=== PATIENT | female | born 1965 | race Caucasian/White ===

== ENCOUNTER 2019-05-30 11:42 | Outpatient (CLI) | payer OTHER ==
[2019-05-30 12:02] LABS: BASOPHILS % (AUTO) 0.6 %; EOSINOPHILS # (AUTO) 0.3 10^3/uL (0.0-0.7); EOSINOPHILS % (AUTO) 5.9 %; HGB - HEMOGLOBIN 12.5 g/dL (12.0-16.0); LYMPHOCYTES # (AUTO) 1.6 10^3/uL (1.5-3.5); LYMPHOCYTES % (AUTO) 29.9 %; MEAN CORPUSCULAR HEMOGLOBIN 33.3 pg (27.0-31.0); MEAN CORPUSCULAR HGB CONC 32.9 g/dL (32.0-36.0); MEAN CORPUSCULAR VOLUME 101.3 fL (81.0-99.0); MONOCYTES # (AUTO) 0.4 10^3/uL (0.0-1.0); NEUTROPHILS # (AUTO) 2.9 10^3/uL (1.5-6.6); NEUTROPHILS % (AUTO) 55.4 %; PLT - PLATELET COUNT 180 10^3/uL (130-450); RED BLOOD COUNT 3.75 10^6/uL (4.20-5.40); RED CELL DISTRIBUTION WIDTH 13.6 % (12.0-15.0); WHITE BLOOD COUNT 5.2 x10^3/uL (4.8-10.8)
[2019-05-30 12:11] LABS: ALBUMIN 4.2 g/dL (3.2-5.5); ALBUMIN/GLOBULIN RATIO 1.4 (1.0-2.2); BILIRUBIN,TOTAL 0.6 mg/dL (0.2-1.0); CALCIUM 9.4 mg/dL (8.5-10.3); CREATININE 0.6 mg/dL (0.4-1.0); TOTAL PROTEIN 7.2 g/dL (6.7-8.2)
== END 2019-05-30 11:43 | disposition home or self-care (01) ==
LOC: LAB 11:42 → RT 11:43
PROVIDERS: ATTEND Internal Medicine Gastroenterology
DX: E78.5 Hyperlipidemia, unspecified (principal); I10 Essential (primary) hypertension
CPT/HCPCS: 36415; 80053; 85025; 93005

== ENCOUNTER 2019-06-06 14:42 | Outpatient (CLI) | payer OTHER | END 2019-06-06 14:43 | disposition home or self-care (01) | LOC: LAB 14:42 | PROVIDERS: ATTEND Internal Medicine Gastroenterology | DX: K43.2 Incisional hernia without obstruction or gangrene (principal) | CPT/HCPCS: 87640 ==

== ENCOUNTER 2019-06-09 09:41 | Day surgery (SDC) | payer OTHER ==
[2019-06-09] MEDS ORDERED: KETAMINE 500 MG/10 ML VIAL IVP ONE (09:42)
[2019-06-09] MEDS ORDERED: KETOROLAC 30 MG/ML VIAL IVP ONE (09:42)
[2019-06-09] MEDS ORDERED: MIDAZOLAM 2 MG/2 ML VIAL IVP ONE (09:42)
[2019-06-09] MEDS ORDERED: PROPOFOL 200 MG/20 ML VIAL IVP ONE (09:42)
[2019-06-09] MEDS ORDERED: fentaNYL 100 MCG/2 ML VIAL IVP ONE (09:42)
[2019-06-09] MEDS ORDERED: ONDANSETRON 4 MG/2 ML VIAL IVP ONE (09:42)
[2019-06-09] MEDS ORDERED: LACTATED RINGERS 1,000 ML IV ONE (10:03)
[2019-06-09] MEDS ORDERED: CEFAZOLIN SODIUM IN 0.9 % NACL 2 GM/100 ML BAG IV ONE (10:03)
[2019-06-09] MEDS ORDERED: ceFAZolin 1 GM VIAL ONE (10:49)
[2019-06-09] MEDS ORDERED: BUPIVACAINE 0.5% PF 10 ML VIAL ONE (10:50)
[2019-06-09] MEDS ORDERED: BUPIVACAINE 0.5%-EPI 1:200000 PF 30 ML VIAL ONE (10:50)
--- NOTE | 2019-06-09 11:19 | ANESTHESIA ---
Pre-Anesthesia VS, & Labs - Diagnosis Umbilical hernia - Procedure umbilical hernia repair with mesh Vital Signs: Temp Pulse Resp BP Pulse Ox 36.4 C L 66 12 134/82 H 98 06/09/19 10:19 06/09/19 10:19 06/09/19 10:19 06/09/19 10:19 06/09/19 10:19 Height 5 ft 9 in Weight (kg) 91 kg - Is Patient ?: No Home Medications and Allergies Home Medications: Ambulatory Orders Omeprazole Magnesium [Prilosec] 20 mg PO DAILY 06/05/19 Telmisartan [Micardis] 40 mg PO DAILY 06/05/19 Omeprazole Magnesium [Prilosec] 20 mg PO DAILY 06/05/19 Telmisartan [Micardis] 40 mg PO DAILY 06/05/19 Allergies/Adverse Reactions: Allergies Allergy/AdvReac Type Severity Reaction Status Date / Time No Known Drug Allergies Allergy Verified 06/06/19 13:12 Anes History & Medical History - Anesthetic History Anesthesia Complications: reports: No previous complications - Medical History Cardiovascular: reports: Hypertension, Murmur Pulmonary: reports: None Gastrointestinal: reports: GERD (controlled with medication), Hepatitis (autoimmune hepatitis) Urinary: reports: None Neuro: reports: None Musculoskeletal: reports: None Endocrine/Autoimmune: reports: None Blood Disorders: reports: None Skin: reports: None Smoking Status: Never smoker Psychosocial: reports: No issues indicated - Surgical History Eyes Ears Nose Throat (EENT): Cataracts Gynecologic: section, Hysterectomy Exam General: Alert, Oriented x3, Cooperative, No acute distress Dental: WNL Mouth Openin Fingerbreadth Neck Mobility: Normal Thyromental Distance: greater than 6 cm Respiratory: Lungs clear, Normal breath sounds, No respiratory distress, No accessory muscle use Cardiovascular: Regular rate, Normal S1, Normal S2, No murmurs Mental/Cognitive Status: Alert/Oriented X3, Normal for patient Plan Anesthesia Type: MAC Consent for Procedure(s) Verified and Reviewed: Yes Code Status: Attempt Resuscitation ASA classification: 2-Mild systemic disease Is this case an emergency?: No
[2019-06-09] MEDS ORDERED: VANCOMYCIN 1 GM VIAL ONE (11:30)
[2019-06-09] MEDS ORDERED: LIDOCAINE-MPF 1% 30 ML VIAL ONE (11:58)
[2019-06-09] MEDS ORDERED: ACETAMINOPHEN 325 MG TABLET PO PRN (12:28)
[2019-06-09] MEDS ORDERED: IBUPROFEN 600 MG TABLET PO PRN (12:28)
[2019-06-09] MEDS ORDERED: ONDANSETRON 4 MG/2 ML VIAL IVP PRN (12:28)
[2019-06-09] MEDS ORDERED: oxyCODONE 5 MG TABLET PO PRN (12:28)
[2019-06-09 13:04] VITALS: BP 128/76
--- NOTE | 2019-06-09 13:10 | OPERATIVE REPORT ---
DATE OF SERVICE: 06/09/2019 Physician: Teo Shelby MD PREOPERATIVE DIAGNOSIS: Symptomatic ventral incisional hernia. POSTOPERATIVE DIAGNOSIS: Symptomatic ventral incisional hernia. PROCEDURE PERFORMED: Open repair of symptomatic ventral incisional hernia with Ventralex soft tissue patch. ANESTHESIA: Local plus monitored anesthesia care by Carolyn Gomez CRNA. SURGEON: Teo Shelby MD ESTIMATED BLOOD LOSS: 5 mL COMPLICATIONS: None. FINDINGS: A 2 cm fascial defect was present in the midline at the umbilicus with preperitoneal fat p resent within the hernia sac. A small Ventralex ST patch was used for the reconstruction. INDICATIONS: Patient is a 53-year-old woman with a history of a progressively enlarging tender, pain ful, reducible umbilical bulge. She is status post several prior laparoscopies. Examination reveale d a partially reducible hernia consistent with a ventral incisional hernia. She was advised to under go elective repair. TECHNIQUE: After informed consent, patient was taken to the operating room and placed in supine posi tion and sedated and monitored. Preoperative preparation included application of sequential calf com pression boots and administration of 2 grams cefazolin and 1 gram of vancomycin intravenously due to a past history of MRSA infection. Her abdomen was prepared with iodoform solution, following which, a periumbilical block was instituted using a 50:50 combination of 1% lidocaine plain and 0.5% Marcain e with epinephrine. Approximately 20 mL of this mixture was used, plus additional 10 mL of 0.5% Doron keri with epinephrine. The patient's abdomen was re-prepared with ChloraPrep solution and draped in the usual sterile fashion. Transverse curvilinear incision was made in the supraumbilical region rena roximately 4 cm in length. Hemostasis achieved with electrocautery. Incision carried down through s ubcutaneous tissues. The hernia sac was identified, mobilized circumferentially dissected free off o f the overlying skin and the anterior fascia was mobilized circumferentially around the neck of the h ernia sac. The hernia sac was entered and excised and discarded. Hernia contents were reduced into the peritoneal cavity, the fascial edges were mobilized circumferentially. After hemostasis was assu red, the wound was irrigated with antibiotic solution containing 1 gram of cefazolin per liter, A siz e small Ventralex ST patch, which been soaked in antibiotic solution, was placed into the preperitone al space, where it was seen to expand nicely against the anterior fascia. The strap was then used to hold the mesh against the anterior fascia while the fascial edges were reapproximated transversely w ith interrupted 0 Ethibond sutures. Several sutures were used to incorporate the strap with the fasc ial closure. Excess strap was excised and discarded. After hemostasis had been assured, the wound w as then again irrigated with antibiotic solution, following which wound closure was accomplished in l solo using interrupted 2-0 Vicryl to reapproximate the deep subcutaneous tissues, followed by contin uous 3-0 Vicryl for the superficial subcutaneous tissues, followed by 4-0 Monocryl subcuticular skin closure, followed by Dermabond. The procedure was then terminated, and the patient was transferred o mi of the operating room in satisfactory condition. Sponge and needle counts were correct x2. No dr britt were used. TD: 06/09/2019 12:38
== END 2019-06-09 09:42 | disposition home or self-care (01) ==
LOC: SDS 09:41
PROVIDERS: ATTEND Internal Medicine Gastroenterology
PROC: 0WUF0JZ Supplement Abdominal Wall with Synthetic Substitute, Open Approach (ICD-10-PCS; principal; 2019-06-09 11:00)
DX: K43.2 Incisional hernia without obstruction or gangrene (principal); I10 Essential (primary) hypertension; E78.5 Hyperlipidemia, unspecified; R01.1 Cardiac murmur, unspecified; K21.9 Gastro-esophageal reflux disease without esophagitis; K75.4 Autoimmune hepatitis; Z85.3 Personal history of malignant neoplasm of breast; Z79.52 Long term (current) use of systemic steroids
CPT/HCPCS: 49560; 49568; A9270; C1781; J0690; J3370; J7120; 87640

== ENCOUNTER 2022-12-03 11:23 | Outpatient (CLI) | payer OTHER | END 2022-12-03 23:59 | disposition critical access hospital (66) | LOC: EMS 11:23 | DX: R00.2 Palpitations (principal) | CPT/HCPCS: A0425; A0429 ==

== ENCOUNTER 2022-12-03 11:59 | Emergency (ER) | payer OTHER ==
[2022-12-03] MEDS ORDERED: DEXAMETHASONE 10 MG/ML VIAL IVP STA (12:13)
--- NOTE | 2022-12-03 12:15 | ED Physician Documentation ---
PD HPI CHEST PAIN - Stated complaint Stated Complaint: HEART PALP - Chief complaint Chief Complaint: Cardiac - History obtained from History obtained from: Patient - Additional information Additional information: 57-year-old woman visiting from [place]. Recent diagnosis of rheumatoid arthritis on a steroid taper currently at 15 mg a day. She has a history of palpitations with negative Holter monitoring may be 20 years ago. Today she felt heart fluttering which has since resolved. She feels fatigued. There is no chest pain or trouble breathing. No pedal edema or calf pain. Symptoms are better now. EMS noted PVCs prior to arrival. PD PAST MEDICAL HISTORY - Past Medical History Cardiovascular: Hypertension, Murmur Respiratory: None Neuro: None Endocrine/Autoimmune: None GI: GERD (controlled with medication), Hepatitis (autoimmune hepatitis) : None HEENT: None Psych: None Musculoskeletal: None Derm: None - Past Surgical History /[employer]: section, Hysterectomy HEENT: Cataracts - Present Medications Home Medications: Ambulatory Orders Medication Instructions Recorded Confirmed Omeprazole Magnesium [Prilosec] 20 mg PO DAILY 06/05/19 06/09/19 Telmisartan [Micardis] 40 mg PO DAILY 06/05/19 06/09/19 oxyCODONE [Roxicodone] 5 mg PO Q6H PRN #10 tablet 06/09/19 atenoloL [Tenormin] 25 mg PO DAILY #30 tablet 12/03/22 - Allergies Allergies/Adverse Reactions: Allergies Allergy/AdvReac Type Severity Reaction Status Date / Time No Known Drug Allergies Allergy Verified 06/06/19 13:12 - Social History Smoking Status: Never smoker PD ED PE NORMAL - Vitals Vital signs reviewed: Yes - General General: Alert and oriented X 3, No acute distress - Neck Neck: Supple, no meningeal sign, No bony TTP - Cardiac Cardiac: RRR, No murmur - Respiratory Respiratory: No respiratory distress, Clear bilaterally - Abdomen Abdomen: Non tender - Back Back: No CVA TTP, No spinal TTP - Derm Derm: Normal color, Warm and dry - Extremities Extremities: No edema, No calf tenderness / cord - Neuro Neuro: Alert and oriented X 3, Normal speech Results - Vitals Vitals: Vital Signs - 24 hr 12/03/22 12/03/22 12:07 15:48 Temperature 37.3 C Heart Rate 96 79 Respiratory 12 16 Rate Blood Pressure 137/80 H 130/72 O2 Saturation 97 96 Oxygen O2 Source Room air - EKG (time done) 1238 Rate: Rate (enter#) (95) Rhythm: NSR [place]: LAD (Borderline) Intervals: Normal ID QRS: Normal Ischemia: Normal ST segments - Labs Labs: Laboratory Tests 12/03/22 12/03/22 12/03/22 12:34 12:34 12:34 WBC 9.6 RBC 3.97 L Hgb 12.6 Hct 38.7 MCV 97.5 MCH 31.7 H MCHC 32.6 RDW 13.1 Plt Count 186 MPV 10.0 Neut # (Auto) 7.9 H Lymph # (Auto) 1.0 L [place] # (Auto) 0.7 Eos # (Auto) 0.1 Baso # (Auto) 0.0 Absolute Nucleated RBC 0.00 Nucleated RBC % 0.0 Sodium 134 L Potassium 3.5 Chloride 94 L Carbon Dioxide 28 Anion Gap 12.0 BUN 14 Creatinine 0.7 Estimated GFR (MDRD) 86 L Glucose 92 Calcium 9.1 Magnesium 1.9 Total Bilirubin 1.3 H AST 24 ALT 32 Alkaline Phosphatase 53 Total Protein 7.2 Albumin 3.9 Globulin 3.3 Albumin/Globulin Ratio 1.2 TSH 1.05 - Rads (name of study) CT pulmonary angiogram is negative Radiology: Final report received, EMP read indepedently PD Medical Decision Making - ED course ED course: 57-year-old woman presents with palpitations, recent diagnosis of rheumatoid arthritis and some generalized weakness. She also notes shortness of breath and while here developed some throbbing associated with her pulse but not painful in the back. She did have occasional PVCs here but they did not necessarily correlate with her symptoms, her symptoms were more constant than her occasional PVCs. We noticed that she had a mild resting tachycardia, right around 100 and at times had a borderline pulse oximetry of 93-94. She denies any recent unilateral calf pain, she did have some bilateral calf pain while walking the other day and has been taking a lot of car trips lately albeit short. Constellation of findings is concerning for potential PE and CT angiogram will be done. CBC reviewed and normal. CMP reviewed with very mild hyponatremia, otherwise negative. TSH reviewed and normal. Departure - Departure Disposition: 01 Home, Self Care Clinical Impression: Palpitations, Autoimmune disease Condition: Good Record reviewed to determine appropriate education?: Yes Instructions: ED Palpitations Prescriptions: atenoloL [Tenormin] 25 mg PO DAILY #30 tablet Comments: You were seen today for palpitations. We noted occasional PVCs which may be the cause of that. He also had some upper back throbbing with some low-grade tachycardia around 100. A CT pulmonary angiogram was negative for blood clots. We did labs with a normal CBC, normal CMP, normal TSH. We are starting you on beta-blockers for the palpitation symptoms. You should follow-up with your doctor later this week for further evaluation and treatment. Return for new or worsening symptoms.
[2022-12-03 12:44] LABS: BASOPHILS % (AUTO) 0.4 %; EOSINOPHILS # (AUTO) 0.1 10^3/uL (0.0-0.7); EOSINOPHILS % (AUTO) 0.9 %; HCT - HEMATOCRIT 38.7 % (37.0-47.0); HGB - HEMOGLOBIN 12.6 g/dL (12.0-16.0); LYMPHOCYTES % (AUTO) 9.9 %; MEAN CORPUSCULAR HEMOGLOBIN 31.7 pg (27.0-31.0); MEAN CORPUSCULAR HGB CONC 32.6 g/dL (32.0-36.0); MEAN CORPUSCULAR VOLUME 97.5 fL (81.0-99.0); MONOCYTES # (AUTO) 0.7 10^3/uL (0.0-1.0); MONOCYTES % (AUTO) 6.8 %; NEUTROPHILS # (AUTO) 7.9 10^3/uL (1.5-6.6); NEUTROPHILS % (AUTO) 81.6 %; PLT - PLATELET COUNT 186 10^3/uL (130-450); RED BLOOD COUNT 3.97 10^6/uL (4.20-5.40); RED CELL DISTRIBUTION WIDTH 13.1 % (12.0-15.0); WHITE BLOOD COUNT 9.6 x10^3/uL (4.8-10.8)
[2022-12-03] MEDS ORDERED: CHERRY SYRUP 10 ML UDC PO ONE (12:50)
[2022-12-03] MEDS ORDERED: HYDROcod/ACETAM 5/325 MG TABLET PO STA (12:50)
[2022-12-03] MEDS ORDERED: DEXAMETHASONE 10 MG/ML VIAL PO STA (12:50)
[2022-12-03 13:28] LABS: ALBUMIN 3.9 g/dL (3.2-5.5); ALBUMIN/GLOBULIN RATIO 1.2 (1.0-2.2); BILIRUBIN,TOTAL 1.3 mg/dL (0.2-1.0); CALCIUM 9.1 mg/dL (8.5-10.3); CREATININE 0.7 mg/dL (0.4-1.0); MAGNESIUM 1.9 mg/dL (1.7-2.8); POTASSIUM 3.5 mmol/L (3.5-5.0); TOTAL PROTEIN 7.2 g/dL (6.7-8.2)
[2022-12-03] MEDS ORDERED: iohexoL-300 100 ML VIAL ONE (13:51)
[2022-12-03] MEDS ORDERED: iohexoL-300 100 ML VIAL IVP ONE (15:22)
--- NOTE | 2022-12-03 15:36 | CT Report ---
PROCEDURE: ANGIO CHEST W/WO INDICATIONS: back pain, dyspnea CONTRAST: 80 omni 300 TECHNIQUE: After the administration of intravenous contrast, 2 mm axial images were acquired from the pulmonary apices to the posterior costophrenic angles during the arterial phase. In addition, 1 mm lung kernel and 5 mm soft tissue kernel reconstructions were performed. 3-dimensional coronal oblique maximum int ensity projection (MIP) reformats, 8 mm axial MIP, and 5 mm coronal and sagittal MPR reformats were t hen performed through the thorax. For radiation dose reduction, the following was used: automated exp osure control, adjustment of mA and/or kV according to patient size. COMPARISON: None FINDINGS: Image quality: Excellent. Pulmonary arteries: Pulmonary arteries are normal in size, and demonstrate no intraluminal filling d efects to suggest central pulmonary embolism. Lungs and pleura: Lungs are clear. No pleural effusions or pneumothorax. Central and peripheral ai rways are patent. Mediastinum: Heart size is normal, without pericardial effusion. No mediastinal or hilar adenopathy . Thoracic aorta is normal in caliber and enhancement. Esophagus is normal in caliber, without hiat al hernia. Bones and chest wall: No suspicious bony lesions. Ribs and thoracic spine appear intact throughout. Age-appropriate degenerative changes are seen. No axillary or supraclavicular adenopathy. The th yroid is normal in size and there are no incidental findings. Abdomen: Visualized upper abdominal solid organs appear normal in the early arterial phase of enhanc ement. IMPRESSION: No findings of pulmonary embolism. Clear lungs. A cause of back pain is not seen. Reviewed by: Zach Emery MD on 12/03/2022 2:35 PM [facility] Approved by: Zach Emery MD on 12/03/2022 2:35 PM [facility] Station ID: [id number]
[2022-12-03 15:48] VITALS: BP 130/72
[2022-12-03] MEDS ORDERED: atenoloL 25 MG TABLET PO STA (15:51)
== END 2022-12-03 16:09 | disposition home or self-care (01) ==
LOC: EDUNIT# → ED 11:59
DX: R00.2 Palpitations (principal); D89.89 Other specified disorders involving the immune mechanism, not elsewhere classified; I10 Essential (primary) hypertension
CPT/HCPCS: 36415; 71275; 80053; 83735; 84443; 85025; 93005; 99284; 99285; A9270; Q9967